=== PATIENT | female | born 1970 | race Caucasian/White ===

== ENCOUNTER → 2023-10-13 | Outpatient (REF) | payer MEDICAID | LOC: M SFHCPLAZ 09:37 | PROVIDERS: ATTEND Internal Medicine Infectious Disease | DX: B20 Human immunodeficiency virus [HIV] disease (principal); E05.90 Thyrotoxicosis, unspecified without thyrotoxic crisis or storm; E78.00 Pure hypercholesterolemia, unspecified ==

== ENCOUNTER 2024-03-22 23:14 | Emergency (ER) | payer OTHER, MEDICAID ==
[~2024-03-22] VITALS: Ht 180.3 cm; Wt 105.0 kg
[~2024-03-22 23:14] MED LIST: ACET-897 PO; BIKT1TAB PO; CETI10CH PO; DOCU100C16 PO; HYDR25OIN TOP; IBUP-1022 PO; IBUP200C28 PO; LAMI25TA PO; LATU40TA2 PO; LURA60TA PO; METH-1386 PO; MIRT-10 PO; MIRT-88 PO; MIRT1TAB16 PO; ONDA-282 PO; PROP20TA PO; PROP20TA72 PO; PROP40TA62 PO; QUET50TA4 PO; TRAZ-252 PO; TRAZ-257 PO
[2024-03-23 06:12] VITALS: TEMP 98
[2024-03-23] MEDS ORDERED: TRAM50TA2 PO (06:31)
[2024-03-23] MEDS: traMADol 50 MG TAB PO ONE (06:54)
[2024-03-23 06:58] VITALS: BP 141/64; O2SAT 98
== END 2024-03-23 07:14 | disposition home or self-care (01) ==
LOC: EDBD 23:14 → M ED 23:14
DX: S93.401A Sprain of unspecified ligament of right ankle, initial encounter (principal); S80.11XA Contusion of right lower leg, initial encounter; Y92.019 Unspecified place in single-family (private) house as the place of occurrence of the external cause; Y93.9 Activity, unspecified; Y99.9 Unspecified external cause status; W01.198A Fall on same level from slipping, tripping and stumbling with subsequent striking against other object, initial encounter; Z91.010 Allergy to peanuts; Z79.1 Long term (current) use of non-steroidal anti-inflammatories (NSAID); Z79.899 Other long term (current) drug therapy

== ENCOUNTER 2024-07-12 00:04 | Emergency (ER) | payer OTHER ==
[~2024-07-12] VITALS: Ht 170.2 cm; Wt 96.3 kg
[~2024-07-12 00:04] MED LIST changes: +TRAM50TA2 PO
[2024-07-12 00:28] VITALS: BP 127/71; TEMP 98.2; O2SAT 94
== END 2024-07-12 00:45 | disposition left against medical advice (07) ==
LOC: M ED 00:04
DX: Z53.21 Procedure and treatment not carried out due to patient leaving prior to being seen by health care provider (principal)

== ENCOUNTER 2024-07-12 09:51 | Emergency (ER) | payer OTHER ==
[2024-07-12 10:23] VITALS: TEMP 98
[2024-07-12] MEDS: IBUPROFEN 600MG TAB PO ONE (13:42)
[2024-07-12 14:01] VITALS: BP 158/65
[2024-07-12 14:02] VITALS: O2SAT 97
== END 2024-07-12 14:18 | disposition left against medical advice (07) ==
LOC: M ED 09:51
DX: S69.92XA Unspecified injury of left wrist, hand and finger(s), initial encounter (principal); Y92.019 Unspecified place in single-family (private) house as the place of occurrence of the external cause; Y93.9 Activity, unspecified; Y99.9 Unspecified external cause status; F31.30 Bipolar disorder, current episode depressed, mild or moderate severity, unspecified; Z91.018 Allergy to other foods; Z91.010 Allergy to peanuts; Z79.1 Long term (current) use of non-steroidal anti-inflammatories (NSAID); Z79.899 Other long term (current) drug therapy; Z53.9 Procedure and treatment not carried out, unspecified reason

== ENCOUNTER 2024-10-24 22:00 | Inpatient (IN) | payer OTHER ==
[~2024-10-24] VITALS: Ht 180.3 cm; Wt 87.5 kg
[~2024-10-24 22:00] MED LIST changes: -ALBU8.5H INH; -FLUTISP NARES; -LORA-930 PO; -SYMB16INH INH
[2024-10-24] MEDS: NS (Normal Saline) 0.9% 1,000 ML IV ONE (22:37)
[2024-10-24] MEDS: KETOROLAC 30 MG/ML 1 ML VIAL IV ONE (22:37)
[2024-10-24 22:50] LABS: BASO # 0.0 10^3/uL (0.0-0.2); BASO % 0.1 % (0.0-1.0); EOS # 0.0 10^3/uL (0.0-0.5); EOS % 0.4 % (0.0-3.0); LYMPH # 1.3 10^3/uL (1.5-5.0); LYMPH % 18.5 % (24.0-44.0); MONO # 0.7 10^3/uL (0.0-0.8); MONO % 9.6 % (2.0-8.0); NEUTROPHILS # 5.1 10^3/uL (1.5-8.5); NEUTROPHILS % 71.3 % (36.0-66.0); PLATELET COUNT, AUTOMATED 241 10^3/uL (150-450)
[2024-10-25] VITALS (10 sets, daily range): BP systolic 105–158; BP diastolic 53–68; TEMP 99–102.6; O2SAT 94–98
[2024-10-25 00:49] LABS: ALT/SGPT 30 U/L (7.0-40); AST/SGOT 56 U/L (<34); CALCIUM LEVEL 9.0 MG/DL (8.5-10.1); CARBON DIOXIDE LEVEL 23 MMOL/L (20-31); CHLORIDE LEVEL 104 MMOL/L (98-107); CREATININE FOR GFR 0.52 MG/DL (0.55-1.30); GLOMERULAR FILTRATION RATE > 90.0 (>51); POTASSIUM SERUM 4.8 MMOL/L (3.5-5.1); SODIUM LEVEL 140 MMOL/L (136-145)
[2024-10-25] MEDS ORDERED: ISOVUE-370 76% 100 ML VIAL As Ordered ONE (01:08)
[2024-10-25 02:07] LABS: KETONE, URINE AUTO RFX NEGATIVE (NEGATIVE); LEUKOCYTE ESTERASE UR AUTO RFX 3+ (NEGATIVE); NITRITE, URINE AUTO RFX POSITIVE (NEGATIVE); RBC, URINE AUTO RFX 13 /HPF (0-3); SQUAM EPITHELIAL CELL UR AURFX 5 /HPF (0-6); WBC, URINE AUTO RFX TNTC /HPF (0-3)
[2024-10-25] MEDS: cefTRIAXone SOD 2 GM in DEXTROSE 5% (D5W) ADV/MINI-BAG 50 ML IV ONE (03:01)
[2024-10-25] MEDS: ONDANSETRON 4MG 2ML VIAL IV ONE (03:01)
[2024-10-25] MEDS: LR 1,000 ML IV SCH (03:59)
[2024-10-25] MEDS: ACETAMINOPHEN 500 MG TAB PO PRN (05:09)
[2024-10-25] MEDS: ONDANSETRON 4MG 2ML VIAL IV PRN (05:09)
[2024-10-25 07:40] LABS: BASO # 0.0 10^3/uL (0.0-0.2); BASO % 0.1 % (0.0-1.0); EOS # 0.0 10^3/uL (0.0-0.5); EOS % 0.1 % (0.0-3.0); LYMPH # 0.8 10^3/uL (1.5-5.0); LYMPH % 8.4 % (24.0-44.0); MONO # 0.9 10^3/uL (0.0-0.8); MONO % 10.3 % (2.0-8.0); NEUTROPHILS # 7.2 10^3/uL (1.5-8.5); NEUTROPHILS % 80.5 % (36.0-66.0); PLATELET COUNT, AUTOMATED 235 10^3/uL (150-450)
[2024-10-25] MEDS: IPRATROPIUM 0.5 MG/ALBUTEROL 2.5 MG INH SOL UD 3 ML NEB SCH (08:05)
[2024-10-25 08:12] LABS: ALT/SGPT 21 U/L (7.0-40); AST/SGOT 23 U/L (<34); CALCIUM LEVEL 8.8 MG/DL (8.5-10.1); CARBON DIOXIDE LEVEL 24 MMOL/L (20-31); CHLORIDE LEVEL 105 MMOL/L (98-107); CREATININE FOR GFR 0.69 MG/DL (0.55-1.30); FREE T4 6.54 NG/DL (0.89-1.76); GLOMERULAR FILTRATION RATE > 90.0 (>51); POTASSIUM SERUM 3.8 MMOL/L (3.5-5.1); SODIUM LEVEL 141 MMOL/L (136-145)
[2024-10-25] MEDS: KETOROLAC 30 MG/ML 1 ML VIAL IV PRN (08:15)
[2024-10-25] MEDS ORDERED: PROPRANOLOL 20 MG TAB PO SCH ×2 (09:00→09:25)
[2024-10-25] MEDS ORDERED: LORA-930 PO (09:06)
[2024-10-25] MEDS ORDERED: FLUTISP NARES (09:06)
[2024-10-25] MEDS ORDERED: ALBU8.5H INH (09:06)
[2024-10-25] MEDS ORDERED: SYMB16INH INH (09:06)
[2024-10-25] MEDS ORDERED: HOME MED LIST COMPLETE! XX SCH (09:10)
[2024-10-25] MEDS: FAMOTIDINE 20 MG TAB PO SCH (09:48)
[2024-10-25] MEDS: SYMBICORT 160/4.5MCG INHALER 6GM INH SCH (11:30)
[2024-10-25] MEDS: lamoTRIgine 25 MG TAB PO SCH (12:23)
[2024-10-25] MEDS: NS 0.45% 1,000 ML IV SCH (14:38)
[2024-10-25 14:48] LABS: CALCIUM LEVEL 8.6 MG/DL (8.5-10.1); CARBON DIOXIDE LEVEL 28 MMOL/L (20-31); CHLORIDE LEVEL 106 MMOL/L (98-107); CREATININE FOR GFR 0.71 MG/DL (0.55-1.30); GLOMERULAR FILTRATION RATE > 90.0 (>51); POTASSIUM SERUM 4.1 MMOL/L (3.5-5.1); SODIUM LEVEL 143 MMOL/L (136-145)
[2024-10-25 14:58] LABS: T UPTAKE 65.0 % (22.5-37.0)
[2024-10-25 15:13] LABS: THYROXINE (T4) 18.8 UG/DL (4.5-10.9)
[2024-10-25] MEDS: cefTRIAXone SOD 2 GM in DEXTROSE 5% (D5W) ADV/MINI-BAG 50 ML IV SCH (20:08)
[2024-10-25] MEDS: HEPARIN SOD 5000 UNITS/ML 1 ML VIAL/SYRINGE SC SCH (20:08)
[2024-10-25] MEDS: PROPRANOLOL 20 MG TAB PO ONE (22:09)
[2024-10-26] VITALS (9 sets, daily range): BP systolic 101–126; BP diastolic 52–60; TEMP 97.2–100.6; O2SAT 92–99
[2024-10-26] MEDS: PROPRANOLOL 20 MG TAB PO SCH
[2024-10-26] MEDS: LEVALBUTEROL 1.25 MG 0.5ML CONCENTRATE NEB INH SCH (02:00)
[2024-10-26 05:53] LABS: PLATELET COUNT, AUTOMATED 197 10^3/uL (150-450)
[2024-10-26 06:20] LABS: ALT/SGPT 22 U/L (7.0-40); AST/SGOT 25 U/L (<34); CALCIUM LEVEL 8.6 MG/DL (8.5-10.1); CARBON DIOXIDE LEVEL 25 MMOL/L (20-31); CHLORIDE LEVEL 103 MMOL/L (98-107); CREATININE FOR GFR 0.58 MG/DL (0.55-1.30); GLOMERULAR FILTRATION RATE > 90.0 (>51); POTASSIUM SERUM 4.4 MMOL/L (3.5-5.1); SODIUM LEVEL 138 MMOL/L (136-145)
[2024-10-26] MEDS ORDERED: POTASSIUM IODIDE 30 ML BTL PO SCH (09:00)
[2024-10-26] MEDS: HYDROCORTISONE 100 MG/2 ML VIAL IV SCH (09:25)
[2024-10-26] MEDS: BIKTARVY PO SCH (09:25)
[2024-10-26] MEDS: POTASSIUM IODIDE 30 ML BTL PO SCH (13:42)
[2024-10-27 03:43] VITALS: BP 101/49; TEMP 96.9; O2SAT 96
[2024-10-27 05:59] LABS: PLATELET COUNT, AUTOMATED 202 10^3/uL (150-450)
[2024-10-27 06:27] LABS: FREE T4 3.34 NG/DL (0.89-1.76)
[2024-10-27 06:36] LABS: ALT/SGPT 23 U/L (7.0-40); AST/SGOT 22 U/L (<34); CALCIUM LEVEL 8.7 MG/DL (8.5-10.1); CARBON DIOXIDE LEVEL 25 MMOL/L (20-31); CHLORIDE LEVEL 109 MMOL/L (98-107); CREATININE FOR GFR 0.46 MG/DL (0.55-1.30); GLOMERULAR FILTRATION RATE > 90.0 (>51); POTASSIUM SERUM 4.2 MMOL/L (3.5-5.1); SODIUM LEVEL 143 MMOL/L (136-145)
[2024-10-27 07:39] VITALS: BP 130/62; TEMP 97; O2SAT 96
[2024-10-27 12:21] VITALS: BP 133/60; TEMP 98; O2SAT 96
[2024-10-27 16:37] VITALS: BP 140/64; TEMP 97.8; O2SAT 97
[2024-10-27] MEDS ORDERED: SENNOSIDES/DOCUSATE SODIUM 8.6 MG/50MG TAB PO PRN (17:00)
[2024-10-27] MEDS ORDERED: MOM 30 ML SUSPENSION UDC PO PRN (17:00)
[2024-10-27] MEDS: LACTULOSE 20 GM/30 ML SYRUP UDC PO ONE (17:49)
[2024-10-27] MEDS: SENNOSIDES/DOCUSATE SODIUM 8.6 MG/50MG TAB PO ONE (17:50)
[2024-10-27 19:41] LABS: % CD4 46 % (30-61); %CD8 23 % (12-42); ABSOLUTE CD4 CELLS 874 cells/uL (490-1740); ABSOLUTE CD8 CELLS 433 cells/uL (180-1170); ABSOLUTE LYMPHOCYTES 1904 cells/uL (850-3900); CD4 CD8 RATIO 2.02 (0.86-5.00)
[2024-10-27 20:22] VITALS: BP 141/64; TEMP 98.3; O2SAT 99
[2024-10-27] MEDS: DOCUSATE SODIUM 100 MG CAPSULE PO SCH (20:34)
[2024-10-27 23:09] VITALS: BP 154/70; TEMP 96.4; O2SAT 94
[2024-10-27] MEDS: RAMELTEON 8 MG TAB PO SCH (23:11)
[2024-10-28 03:55] VITALS: BP 128/70; TEMP 97.7; O2SAT 96
[2024-10-28 06:09] LABS: PLATELET COUNT, AUTOMATED 222 10^3/uL (150-450)
[2024-10-28 08:02] LABS: ALT/SGPT 19 U/L (7.0-40); AST/SGOT 16 U/L (<34); CALCIUM LEVEL 8.7 MG/DL (8.5-10.1); CARBON DIOXIDE LEVEL 26 MMOL/L (20-31); CHLORIDE LEVEL 109 MMOL/L (98-107); CREATININE FOR GFR 0.47 MG/DL (0.55-1.30); FREE T4 2.84 NG/DL (0.89-1.76); GLOMERULAR FILTRATION RATE > 90.0 (>51); POTASSIUM SERUM 3.8 MMOL/L (3.5-5.1); SODIUM LEVEL 145 MMOL/L (136-145)
[2024-10-28 08:17] VITALS: BP 135/61; TEMP 97; O2SAT 96
[2024-10-28 12:05] VITALS: BP 147/67; TEMP 97.2; O2SAT 96
[2024-10-28 16:42] VITALS: BP 117/58; TEMP 97.1; O2SAT 96
[2024-10-28 19:31] VITALS: BP 119/57; TEMP 97.6; O2SAT 97
[2024-10-28 23:53] VITALS: BP 157/70; TEMP 97; O2SAT 96
[2024-10-29 03:42] VITALS: BP 153/69; TEMP 97.8; O2SAT 92
[2024-10-29 06:06] LABS: PLATELET COUNT, AUTOMATED 270 10^3/uL (150-450)
[2024-10-29 06:29] LABS: ALT/SGPT 23 U/L (7.0-40); AST/SGOT 17 U/L (<34); CALCIUM LEVEL 8.5 MG/DL (8.5-10.1); CARBON DIOXIDE LEVEL 28 MMOL/L (20-31); CHLORIDE LEVEL 105 MMOL/L (98-107); CREATININE FOR GFR 0.44 MG/DL (0.55-1.30); GLOMERULAR FILTRATION RATE > 90.0 (>51); POTASSIUM SERUM 3.8 MMOL/L (3.5-5.1); SODIUM LEVEL 141 MMOL/L (136-145)
[2024-10-29 06:32] LABS: FREE T4 2.41 NG/DL (0.89-1.76)
[2024-10-29 07:41] VITALS: TEMP 97.4; O2SAT 94
[2024-10-29 07:57] VITALS: BP 160/80
[2024-10-29 11:40] VITALS: BP 149/69; TEMP 98.4; O2SAT 96
[2024-10-29] MEDS: POTASSIUM IODIDE 30 ML BTL PO SCH (14:14)
[2024-10-29 15:48] VITALS: BP 127/62; TEMP 97.8; O2SAT 94
[2024-10-29 20:02] VITALS: BP 123/58; TEMP 97.2; O2SAT 96
[2024-10-29] MEDS: CHOLESTYRAMINE 4 GM PWD PKT PO SCH (22:20)
[2024-10-29 22:23] LABS: THYROGLOBULIN ANTIBODY 26.0 U/ML (<60.0)
[2024-10-29 22:24] LABS: THYROID PEROXIDASE ANTIBODY 105 U/ML (<60.0)
[2024-10-30] VITALS (10 sets, daily range): BP systolic 132–178; BP diastolic 60–84; TEMP 96.9–97.5; O2SAT 93–98
[2024-10-30] MEDS: HYDROCORTISONE 100 MG/2 ML VIAL IV SCH ×2 (00:01→23:22)
[2024-10-30 06:02] LABS: PLATELET COUNT, AUTOMATED 257 10^3/uL (150-450)
[2024-10-30 06:32] LABS: ALT/SGPT 26 U/L (7.0-40); AST/SGOT 20 U/L (<34); CALCIUM LEVEL 8.5 MG/DL (8.5-10.1); CARBON DIOXIDE LEVEL 28 MMOL/L (20-31); CHLORIDE LEVEL 104 MMOL/L (98-107); CREATININE FOR GFR 0.50 MG/DL (0.55-1.30); GLOMERULAR FILTRATION RATE > 90.0 (>51); POTASSIUM SERUM 4.0 MMOL/L (3.5-5.1); SODIUM LEVEL 141 MMOL/L (136-145)
[2024-10-30 06:34] LABS: FREE T4 2.09 NG/DL (0.89-1.76)
[2024-10-30] MEDS: CHOLESTYRAMINE 4 GM PWD PKT PO SCH (20:44)
[2024-10-31] VITALS (8 sets, daily range): BP systolic 123–162; BP diastolic 60–71; TEMP 97.2–98; O2SAT 96–99
[2024-10-31 05:10] LABS: PLATELET COUNT, AUTOMATED 281 10^3/uL (150-450)
[2024-10-31 05:41] LABS: ALT/SGPT 22 U/L (7.0-40); AST/SGOT 18 U/L (<34); CALCIUM LEVEL 8.2 MG/DL (8.5-10.1); CARBON DIOXIDE LEVEL 28 MMOL/L (20-31); CHLORIDE LEVEL 104 MMOL/L (98-107); CREATININE FOR GFR 0.52 MG/DL (0.55-1.30); GLOMERULAR FILTRATION RATE > 90.0 (>51); POTASSIUM SERUM 4.0 MMOL/L (3.5-5.1); SODIUM LEVEL 140 MMOL/L (136-145)
[2024-10-31 05:43] LABS: FREE T4 1.85 NG/DL (0.89-1.76)
[2024-10-31] MEDS: POTASSIUM IODIDE 30 ML BTL PO SCH (18:46)
[2024-11-01 03:48] VITALS: BP 132/62; TEMP 97.5; O2SAT 97
[2024-11-01 04:00] VITALS: BP 132/62; TEMP 97.5; O2SAT 97
[2024-11-01 05:27] LABS: PLATELET COUNT, AUTOMATED 297 10^3/uL (150-450)
[2024-11-01 06:01] LABS: ALT/SGPT 20 U/L (7.0-40); AST/SGOT 17 U/L (<34); CALCIUM LEVEL 7.7 MG/DL (8.5-10.1); CARBON DIOXIDE LEVEL 26 MMOL/L (20-31); CHLORIDE LEVEL 106 MMOL/L (98-107); CREATININE FOR GFR 0.51 MG/DL (0.55-1.30); FREE T4 1.55 NG/DL (0.89-1.76); GLOMERULAR FILTRATION RATE > 90.0 (>51); POTASSIUM SERUM 3.5 MMOL/L (3.5-5.1); SODIUM LEVEL 142 MMOL/L (136-145)
[2024-11-01 07:55] VITALS: BP 141/65; TEMP 97.8; O2SAT 98
[2024-11-01] MEDS ORDERED: METH-1387 PO (08:37)
[2024-11-01] MEDS ORDERED: ATEN50TA2 PO (08:38)
[2024-11-01 12:32] LABS: THRYOGLOBULIN ANTIBODIES (ATA) < 1 IU/mL (< or = 1); THYROGLOBULIN QUANTITATIVE 220.5 ng/mL (2.8-40.9)
[2024-11-03 21:52] LABS: TSH RECEPTOR ASSAY 34.92 IU/L (<=2.00)
== END 2024-11-01 12:22 | disposition home or self-care (01) | DRG 720 ==
LOC: M ED 22:00 → M ED INP 22:01 → M MSPAV 10-25 05:48 → M PCU 10-25 10:05 → OBSVTOIN 10-25 11:44
PROVIDERS: ADMIT Student in an Organized Health Care Education/Training Program; ATTEND Student in an Organized Health Care Education/Training Program
PROC: B246ZZZ Ultrasonography of Right and Left Heart (ICD-10-PCS; principal; 2024-10-27)
DX: A41.9 Sepsis, unspecified organism (principal); D84.821 Immunodeficiency due to drugs; Q61.3 Polycystic kidney, unspecified; K76.89 Other specified diseases of liver; E05.90 Thyrotoxicosis, unspecified without thyrotoxic crisis or storm; N39.0 Urinary tract infection, site not specified; R19.7 Diarrhea, unspecified; R01.1 Cardiac murmur, unspecified; J45.909 Unspecified asthma, uncomplicated; G47.00 Insomnia, unspecified; F39 Unspecified mood [affective] disorder; R11.0 Nausea; R74.01 Elevation of levels of liver transaminase levels; D64.9 Anemia, unspecified; B96.20 Unspecified Escherichia coli [E. coli] as the cause of diseases classified elsewhere; E06.3 Autoimmune thyroiditis; F41.9 Anxiety disorder, unspecified; I10 Essential (primary) hypertension; Z21 Asymptomatic human immunodeficiency virus [HIV] infection status; Z79.899 Other long term (current) drug therapy; Z91.010 Allergy to peanuts; Z91.018 Allergy to other foods; Z91.038 Other insect allergy status

== ENCOUNTER → 2024-10-24 | Outpatient (CLI) | payer OTHER ==
[~2024-10-24] MED LIST changes: +ALBU8.5H INH; +AMOX875T2 PO; +FLUTISP NARES; +LORA-930 PO; +SYMB16INH INH
== END ==
LOC: M WHC 09:30
PROVIDERS: ATTEND Internal Medicine Infectious Disease
DX: E05.20 Thyrotoxicosis with toxic multinodular goiter without thyrotoxic crisis or storm (principal)

== ENCOUNTER → 2024-11-15 | Outpatient (REF) | payer OTHER, MEDICAID ==
[~2024-11-15] MED LIST changes: +ALBU8.5H INH; +ATEN50TA2 PO; +FLUTISP NARES; -IBUP-1022 PO; +IBUP600T42 PO; +LORA-930 PO; +METH-1387 PO; +PRED20TA PO; +SYMB16INH INH
[2024-11-15 14:20] LABS: BASO # 0.0 10^3/uL (0.0-0.2); BASO % 0.6 % (0.0-1.0); EOS # 0.1 10^3/uL (0.0-0.5); EOS % 2.8 % (0.0-3.0); LYMPH # 1.7 10^3/uL (1.5-5.0); LYMPH % 51.6 % (24.0-44.0); MONO # 0.6 10^3/uL (0.0-0.8); MONO % 18.8 % (2.0-8.0); NEUTROPHILS % 25.9 % (36.0-66.0); PLATELET COUNT, AUTOMATED 390 10^3/uL (150-450)
[2024-11-15 14:36] LABS: NEUTROPHILS # 0.8 10^3/uL (1.5-8.5)
[2024-11-15 15:51] LABS: ALT/SGPT 19 U/L (7.0-40); AST/SGOT 23 U/L (<34); CALCIUM LEVEL 9.9 MG/DL (8.5-10.1); CARBON DIOXIDE LEVEL 25 MMOL/L (20-31); CHLORIDE LEVEL 103 MMOL/L (98-107); CREATININE FOR GFR 0.60 MG/DL (0.55-1.30); FREE T4 > 8.00 NG/DL (0.89-1.76); GLOMERULAR FILTRATION RATE > 90.0 (>51); POTASSIUM SERUM 4.5 MMOL/L (3.5-5.1); SODIUM LEVEL 137 MMOL/L (136-145); TOTAL T3 > 800.0 NG/DL (60.0-181.0)
== END ==
LOC: M LAB REF 14:01
PROVIDERS: ATTEND Student in an Organized Health Care Education/Training Program
DX: E05.90 Thyrotoxicosis, unspecified without thyrotoxic crisis or storm (principal); R50.9 Fever, unspecified

== ENCOUNTER 2024-11-17 11:12 | Inpatient (IN) | payer MEDICAID, OTHER ==
[~2024-11-17] VITALS: Ht 180.3 cm; Wt 89.0 kg
[~2024-11-17 11:12] MED LIST changes: -PRED20TA PO
[2024-11-17 13:12] LABS: BASO # 0.0 10^3/uL (0.0-0.2); BASO % 0.4 % (0.0-1.0); EOS # 0.1 10^3/uL (0.0-0.5); EOS % 2.3 % (0.0-3.0); LYMPH # 1.6 10^3/uL (1.5-5.0); LYMPH % 64.1 % (24.0-44.0); MONO # 0.4 10^3/uL (0.0-0.8); MONO % 15.6 % (2.0-8.0); NEUTROPHILS % 17.2 % (36.0-66.0); PLATELET COUNT, AUTOMATED 259 10^3/uL (150-450)
[2024-11-17 13:14] LABS: NEUTROPHILS # 0.4 10^3/uL (1.5-8.5)
[2024-11-17 13:45] LABS: FREE T4 > 8.00 NG/DL (0.89-1.76)
[2024-11-17 13:58] LABS: ALT/SGPT 21 U/L (7.0-40); AST/SGOT 27 U/L (<34); CALCIUM LEVEL 9.5 MG/DL (8.5-10.1); CARBON DIOXIDE LEVEL 30 MMOL/L (20-31); CHLORIDE LEVEL 104 MMOL/L (98-107); CREATININE FOR GFR 0.54 MG/DL (0.55-1.30); GLOMERULAR FILTRATION RATE > 90.0 (>51); POTASSIUM SERUM 4.0 MMOL/L (3.5-5.1); SODIUM LEVEL 141 MMOL/L (136-145)
[2024-11-17 14:15] LABS: KETONE, URINE AUTO RFX NEGATIVE (NEGATIVE); NITRITE, URINE AUTO RFX NEGATIVE (NEGATIVE); RBC, URINE AUTO RFX 4 /HPF (0-3); SQUAM EPITHELIAL CELL UR AURFX 3 /HPF (0-6); WBC, URINE AUTO RFX 4 /HPF (0-3)
[2024-11-17 14:18] LABS: LEUKOCYTE ESTERASE UR AUTO RFX TRACE (NEGATIVE)
[2024-11-17] MEDS: NS (Normal Saline) 0.9% 1,000 ML IV ONE (14:34)
[2024-11-17] MEDS: ONDANSETRON 4MG 2ML VIAL IV ONE (14:53)
[2024-11-17 16:16] LABS: ERYTHROCYTE SEDIMENTATION RATE 123 mm/hr (0-30)
[2024-11-17] MEDS ORDERED: METH-1387 PO (16:17)
[2024-11-17] MEDS ORDERED: ATEN50TA2 PO (16:17)
[2024-11-17] MEDS ORDERED: HOME MED LIST COMPLETE! XX SCH (16:20)
[2024-11-17 16:27] LABS: C REACTIVE PROTEIN QUANTITATIV 1.31 MG/DL (<1.0)
[2024-11-17 16:30] VITALS: TEMP 98.5; O2SAT 97
[2024-11-17 17:46] VITALS: BP 147/70
[2024-11-17] MEDS ORDERED: DOCUSATE SODIUM 100 MG CAPSULE PO PRN (18:05)
[2024-11-17] MEDS ORDERED: ALBUTEROL 90 MCG/ACT 8 GM HFA INHALER INH PRN (18:05)
[2024-11-17] MEDS: HYDROCORTISONE 100 MG/2 ML VIAL IV SCH (18:07)
[2024-11-17] MEDS: PROPRANOLOL 20 MG TAB PO SCH (18:13)
[2024-11-17 19:35] VITALS: BP 151/64; TEMP 98; O2SAT 95
[2024-11-17] MEDS: POTASSIUM IODIDE 30 ML BTL PO SCH (19:53)
[2024-11-17] MEDS: SYMBICORT 160/4.5MCG INHALER 6GM INH SCH (19:59)
[2024-11-17] MEDS: NYSTATIN 100,000 UNITS/GM TOPICAL PWD 15 GM TOP SCH (21:20)
[2024-11-17] MEDS: ENOXAPARIN 40 MG/0.4 ML SYRINGE (J1650 PER 10MG) SC SCH (21:20)
[2024-11-18 00:05] VITALS: BP 127/60; TEMP 97.2; O2SAT 94
[2024-11-18 04:36] VITALS: BP 121/58; TEMP 98.1; O2SAT 97
[2024-11-18 06:10] LABS: PLATELET COUNT, AUTOMATED 224 10^3/uL (150-450)
[2024-11-18 06:36] LABS: ALT/SGPT 17 U/L (7.0-40); AST/SGOT 19 U/L (<34); CALCIUM LEVEL 9.2 MG/DL (8.5-10.1); CARBON DIOXIDE LEVEL 28 MMOL/L (20-31); CHLORIDE LEVEL 107 MMOL/L (98-107); CREATININE FOR GFR 0.52 MG/DL (0.55-1.30); GLOMERULAR FILTRATION RATE > 90.0 (>51); POTASSIUM SERUM 4.3 MMOL/L (3.5-5.1); SODIUM LEVEL 144 MMOL/L (136-145)
[2024-11-18 07:29] VITALS: BP 140/63; TEMP 98.4; O2SAT 96
[2024-11-18 08:36] LABS: FREE T4 6.60 NG/DL (0.89-1.76)
[2024-11-18] MEDS: LORATADINE 10 MG TAB PO SCH (09:24)
[2024-11-18] MEDS: BIKTARVY PO SCH (09:24)
[2024-11-18] MEDS: FLUTICASONE PROPIONATE 0.05% NASAL SPRAY 16 GM NARES SCH (09:25)
[2024-11-18 12:00] VITALS: BP 141/65; TEMP 97.6; O2SAT 98
[2024-11-18 16:25] VITALS: BP 136/64; TEMP 97; O2SAT 97
[2024-11-18] MEDS: CHOLESTYRAMINE 4 GM PWD PKT PO SCH (19:25)
[2024-11-18 19:41] VITALS: BP 137/71; TEMP 97.4; O2SAT 97
[2024-11-18] MEDS: ACETAMINOPHEN 500 MG TAB PO PRN (23:55)
[2024-11-19] VITALS (7 sets, daily range): BP systolic 112–154; BP diastolic 56–72; TEMP 97–98.3; O2SAT 92–98
[2024-11-19 05:56] LABS: BASO # 0.0 10^3/uL (0.0-0.2); BASO % 0.0 % (0.0-1.0); EOS # 0.0 10^3/uL (0.0-0.5); EOS % 0.3 % (0.0-3.0); LYMPH # 1.8 10^3/uL (1.5-5.0); LYMPH % 52.7 % (24.0-44.0); MONO # 0.5 10^3/uL (0.0-0.8); MONO % 13.5 % (2.0-8.0); NEUTROPHILS # 1.2 10^3/uL (1.5-8.5); NEUTROPHILS % 33.2 % (36.0-66.0); PLATELET COUNT, AUTOMATED 204 10^3/uL (150-450)
[2024-11-19 06:20] LABS: ALT/SGPT 16 U/L (7.0-40); AST/SGOT 15 U/L (<34); CALCIUM LEVEL 9.4 MG/DL (8.5-10.1); CARBON DIOXIDE LEVEL 29 MMOL/L (20-31); CHLORIDE LEVEL 107 MMOL/L (98-107); CREATININE FOR GFR 0.44 MG/DL (0.55-1.30); GLOMERULAR FILTRATION RATE > 90.0 (>51); POTASSIUM SERUM 3.7 MMOL/L (3.5-5.1); SODIUM LEVEL 143 MMOL/L (136-145)
[2024-11-19 06:22] LABS: FREE T4 5.46 NG/DL (0.89-1.76)
[2024-11-19] MEDS: HYDROCORTISONE 100 MG/2 ML VIAL IV SCH (17:20)
[2024-11-20 04:24] VITALS: BP 127/57; TEMP 98.3; O2SAT 96
[2024-11-20 05:46] LABS: BASO # 0.0 10^3/uL (0.0-0.2); BASO % 0.0 % (0.0-1.0); EOS # 0.0 10^3/uL (0.0-0.5); EOS % 0.2 % (0.0-3.0); LYMPH # 2.7 10^3/uL (1.5-5.0); LYMPH % 54.1 % (24.0-44.0); MONO # 0.6 10^3/uL (0.0-0.8); MONO % 11.7 % (2.0-8.0); NEUTROPHILS # 1.7 10^3/uL (1.5-8.5); NEUTROPHILS % 33.8 % (36.0-66.0); PLATELET COUNT, AUTOMATED 229 10^3/uL (150-450)
[2024-11-20 06:22] LABS: ALT/SGPT 16 U/L (7.0-40); AST/SGOT 15 U/L (<34); CALCIUM LEVEL 9.2 MG/DL (8.5-10.1); CARBON DIOXIDE LEVEL 26 MMOL/L (20-31); CHLORIDE LEVEL 107 MMOL/L (98-107); CREATININE FOR GFR 0.44 MG/DL (0.55-1.30); GLOMERULAR FILTRATION RATE > 90.0 (>51); POTASSIUM SERUM 3.5 MMOL/L (3.5-5.1); SODIUM LEVEL 145 MMOL/L (136-145)
[2024-11-20 06:45] VITALS: BP 142/67; TEMP 97; O2SAT 97
[2024-11-20 07:35] LABS: FREE T4 4.63 NG/DL (0.89-1.76); TOTAL T3 223.3 NG/DL (60.0-181.0)
[2024-11-20 07:40] VITALS: BP 126/58; TEMP 97.8; O2SAT 97
[2024-11-20 12:15] VITALS: BP 133/63; TEMP 97.9; O2SAT 97
[2024-11-20 15:35] VITALS: BP 116/57; TEMP 98; O2SAT 97
[2024-11-20 19:29] VITALS: BP 133/63; TEMP 97; O2SAT 97
[2024-11-20] MEDS: HYDROCORTISONE 100 MG/2 ML VIAL IV SCH (20:43)
[2024-11-21 03:45] VITALS: BP 121/57; TEMP 97.7; O2SAT 95
[2024-11-21 06:01] LABS: BASO # 0.0 10^3/uL (0.0-0.2); BASO % 0.2 % (0.0-1.0); EOS # 0.1 10^3/uL (0.0-0.5); EOS % 0.9 % (0.0-3.0); LYMPH # 3.2 10^3/uL (1.5-5.0); LYMPH % 56.9 % (24.0-44.0); MONO # 0.5 10^3/uL (0.0-0.8); MONO % 9.3 % (2.0-8.0); NEUTROPHILS # 1.8 10^3/uL (1.5-8.5); NEUTROPHILS % 32.5 % (36.0-66.0); PLATELET COUNT, AUTOMATED 223 10^3/uL (150-450)
[2024-11-21 06:31] LABS: FREE T4 3.89 NG/DL (0.89-1.76)
[2024-11-21 06:32] LABS: ALT/SGPT 17 U/L (7.0-40); AST/SGOT 12 U/L (<34); CALCIUM LEVEL 8.9 MG/DL (8.5-10.1); CARBON DIOXIDE LEVEL 27 MMOL/L (20-31); CHLORIDE LEVEL 107 MMOL/L (98-107); CREATININE FOR GFR 0.51 MG/DL (0.55-1.30); GLOMERULAR FILTRATION RATE > 90.0 (>51); POTASSIUM SERUM 3.5 MMOL/L (3.5-5.1); SODIUM LEVEL 144 MMOL/L (136-145)
[2024-11-21 08:00] VITALS: TEMP 96.2; O2SAT 99
[2024-11-21] MEDS: HYDROCORTISONE 10 MG TAB PO SCH (10:26)
[2024-11-21 12:00] VITALS: BP 141/64; TEMP 98.5; O2SAT 96
[2024-11-21] MEDS: ONDANSETRON 4MG 2ML VIAL IV PRN (15:56)
[2024-11-21 16:00] VITALS: BP 125/60; TEMP 98; O2SAT 99
[2024-11-21] MEDS ORDERED: CHOLESTYRAMINE 4 GM PWD PKT PO SCH (16:00)
[2024-11-21 20:13] VITALS: BP 113/51; TEMP 97; O2SAT 98
[2024-11-22 00:14] VITALS: BP 102/51; TEMP 96.9; O2SAT 95
[2024-11-22 04:29] VITALS: BP 134/62; TEMP 96.6; O2SAT 95
[2024-11-22 06:25] LABS: BASO # 0.0 10^3/uL (0.0-0.2); BASO % 0.1 % (0.0-1.0); EOS # 0.2 10^3/uL (0.0-0.5); EOS % 2.4 % (0.0-3.0); LYMPH # 3.1 10^3/uL (1.5-5.0); LYMPH % 46.3 % (24.0-44.0); MONO # 0.6 10^3/uL (0.0-0.8); MONO % 9.1 % (2.0-8.0); NEUTROPHILS # 2.8 10^3/uL (1.5-8.5); NEUTROPHILS % 41.8 % (36.0-66.0); PLATELET COUNT, AUTOMATED 216 10^3/uL (150-450)
[2024-11-22 06:50] LABS: ALT/SGPT 14 U/L (7.0-40); AST/SGOT 12 U/L (<34); CALCIUM LEVEL 8.9 MG/DL (8.5-10.1); CARBON DIOXIDE LEVEL 27 MMOL/L (20-31); CHLORIDE LEVEL 108 MMOL/L (98-107); CREATININE FOR GFR 0.47 MG/DL (0.55-1.30); GLOMERULAR FILTRATION RATE > 90.0 (>51); POTASSIUM SERUM 4.0 MMOL/L (3.5-5.1); SODIUM LEVEL 144 MMOL/L (136-145)
[2024-11-22 06:53] LABS: FREE T4 3.47 NG/DL (0.89-1.76)
[2024-11-22 07:54] VITALS: BP 140/66; TEMP 97.6; O2SAT 98
[2024-11-22] MEDS: predniSONE 20 MG TAB PO SCH (10:32)
[2024-11-22 16:11] VITALS: BP 126/59; TEMP 97.2; O2SAT 97
[2024-11-22 17:00] VITALS: BP 146/64; TEMP 96.8; O2SAT 97
[2024-11-22 20:16] VITALS: BP 124/59; TEMP 97.2; O2SAT 95
[2024-11-23 00:52] VITALS: BP 119/50; TEMP 97; O2SAT 96
[2024-11-23 04:29] VITALS: BP 121/52; TEMP 96.8; O2SAT 98
[2024-11-23 06:29] LABS: BASO # 0.0 10^3/uL (0.0-0.2); BASO % 0.1 % (0.0-1.0); EOS # 0.2 10^3/uL (0.0-0.5); EOS % 3.0 % (0.0-3.0); LYMPH # 3.7 10^3/uL (1.5-5.0); LYMPH % 48.0 % (24.0-44.0); MONO # 0.7 10^3/uL (0.0-0.8); MONO % 9.6 % (2.0-8.0); NEUTROPHILS # 3.0 10^3/uL (1.5-8.5); NEUTROPHILS % 39.0 % (36.0-66.0); PLATELET COUNT, AUTOMATED 247 10^3/uL (150-450)
[2024-11-23 06:55] LABS: ALT/SGPT 16 U/L (7.0-40); AST/SGOT 13 U/L (<34); CALCIUM LEVEL 8.9 MG/DL (8.5-10.1); CARBON DIOXIDE LEVEL 29 MMOL/L (20-31); CHLORIDE LEVEL 105 MMOL/L (98-107); CREATININE FOR GFR 0.51 MG/DL (0.55-1.30); GLOMERULAR FILTRATION RATE > 90.0 (>51); POTASSIUM SERUM 3.7 MMOL/L (3.5-5.1); SODIUM LEVEL 142 MMOL/L (136-145)
[2024-11-23 06:56] LABS: FREE T4 2.93 NG/DL (0.89-1.76)
[2024-11-23 08:00] VITALS: BP 130/59; TEMP 97.3; O2SAT 98
[2024-11-23 09:43] VITALS: BP 130/59
[2024-11-23] MEDS ORDERED: PRED20TA PO (10:28)
[2024-11-23] MEDS ORDERED: ATEN50TA2 PO (10:28)
[2024-11-23] MEDS ORDERED: METH-1387 PO (10:28)
[2024-11-23 12:00] VITALS: BP 149/60; TEMP 97; O2SAT 95
== END 2024-11-23 13:05 | disposition home or self-care (01) | DRG 424 ==
LOC: M ED 11:12 → M ED INP 15:12 → M PCU 17:20 → M MSPAV 11-22 16:55
PROVIDERS: ADMIT Internal Medicine; ATTEND Internal Medicine
DX: E05.00 Thyrotoxicosis with diffuse goiter without thyrotoxic crisis or storm (principal); B20 Human immunodeficiency virus [HIV] disease; Q61.3 Polycystic kidney, unspecified; D70.9 Neutropenia, unspecified; Q44.6 Cystic disease of liver; J45.909 Unspecified asthma, uncomplicated; I10 Essential (primary) hypertension; F39 Unspecified mood [affective] disorder; R53.1 Weakness; R11.2 Nausea with vomiting, unspecified; R19.7 Diarrhea, unspecified; G47.00 Insomnia, unspecified; Z79.899 Other long term (current) drug therapy; Z91.010 Allergy to peanuts; Z91.018 Allergy to other foods; Z91.038 Other insect allergy status; Z87.891 Personal history of nicotine dependence

== ENCOUNTER 2024-12-18 16:50 | Observation (INO) | payer MEDICAID, OTHER ==
[~2024-12-18] VITALS: Ht 180.3 cm; Wt 90.5 kg
[~2024-12-18 16:50] MED LIST changes: +PRED20TA PO
[2024-12-18 18:05] LABS: BASO # 0.0 10^3/uL (0.0-0.2); BASO % 0.4 % (0.0-1.0); EOS # 0.1 10^3/uL (0.0-0.5); EOS % 1.7 % (0.0-3.0); LYMPH # 2.6 10^3/uL (1.5-5.0); LYMPH % 55.1 % (24.0-44.0); MONO # 0.6 10^3/uL (0.0-0.8); MONO % 12.3 % (2.0-8.0); NEUTROPHILS # 1.4 10^3/uL (1.5-8.5); NEUTROPHILS % 30.5 % (36.0-66.0); PLATELET COUNT, AUTOMATED 329 10^3/uL (150-450)
[2024-12-18 18:23] LABS: ALT/SGPT 13 U/L (7.0-40); AST/SGOT 15 U/L (<34); C REACTIVE PROTEIN QUANTITATIV 0.88 MG/DL (<1.0); CALCIUM LEVEL 9.1 MG/DL (8.5-10.1); CARBON DIOXIDE LEVEL 28 MMOL/L (20-31); CHLORIDE LEVEL 102 MMOL/L (98-107); CREATININE FOR GFR 0.79 MG/DL (0.55-1.30); GLOMERULAR FILTRATION RATE 89.4 (>51); POTASSIUM SERUM 3.8 MMOL/L (3.5-5.1); SODIUM LEVEL 137 MMOL/L (136-145)
[2024-12-18 18:25] LABS: ERYTHROCYTE SEDIMENTATION RATE 100 mm/hr (0-30)
[2024-12-18 18:26] LABS: FREE T4 2.10 NG/DL (0.89-1.76)
[2024-12-18] MEDS ORDERED: METH-1387 PO (19:33)
[2024-12-18] MEDS ORDERED: HOME MED LIST COMPLETE! XX SCH (19:35)
[2024-12-18] MEDS: LR 1,000 ML IV ONE (22:40)
[2024-12-19] MEDS: LR 1,000 ML IV SCH (00:29)
[2024-12-19 01:33] VITALS: BP 140/56; TEMP 97; O2SAT 100
[2024-12-19 04:13] VITALS: BP 125/60; TEMP 97.1; O2SAT 97
[2024-12-19 07:09] LABS: PLATELET COUNT, AUTOMATED 262 10^3/uL (150-450)
[2024-12-19] MEDS ORDERED: ALBUTEROL 90 MCG/ACT 8 GM HFA INHALER INH PRN (07:10)
[2024-12-19 07:19] LABS: CALCIUM LEVEL 8.4 MG/DL (8.5-10.1); CARBON DIOXIDE LEVEL 29 MMOL/L (20-31); CHLORIDE LEVEL 105 MMOL/L (98-107); CREATININE FOR GFR 0.61 MG/DL (0.55-1.30); GLOMERULAR FILTRATION RATE > 90.0 (>51); MAGNESIUM LEVEL 1.5 MG/DL (1.8-2.4); POTASSIUM SERUM 3.5 MMOL/L (3.5-5.1); SODIUM LEVEL 141 MMOL/L (136-145)
[2024-12-19 08:00] VITALS: BP 124/58; TEMP 97.7; O2SAT 96
[2024-12-19] MEDS: SYMBICORT 160/4.5MCG INHALER 6GM INH SCH (08:35)
[2024-12-19] MEDS: ENOXAPARIN 40 MG/0.4 ML SYRINGE (J1650 PER 10MG) SC SCH (09:38)
[2024-12-19] MEDS: FLUTICASONE PROPIONATE 0.05% NASAL SPRAY 16 GM NARES SCH (09:38)
[2024-12-19] MEDS: LORATADINE 10 MG TAB PO SCH (09:39)
[2024-12-19] MEDS: BIKTARVY PO SCH (09:40)
[2024-12-19] MEDS: MAG SULF 1GM/100ML (MAG RUN) 1 GM in IV 1 EA IV SCH (09:40)
[2024-12-19 09:42] VITALS: BP 139/70
[2024-12-19 12:00] VITALS: BP 110/55; TEMP 97.9; O2SAT 92
[2024-12-19] MEDS ORDERED: ATEN25TA PO (12:36)
[2024-12-19] MEDS ORDERED: CHOL4PW PO (12:46)
== END 2024-12-19 14:18 | disposition home or self-care (01) ==
LOC: M ED 16:50 → M ED INP 16:51 → M MSPAV 12-19 01:28
PROVIDERS: ADMIT Student in an Organized Health Care Education/Training Program; ATTEND Internal Medicine
DX: E05.00 Thyrotoxicosis with diffuse goiter without thyrotoxic crisis or storm (principal); E86.0 Dehydration; R55 Syncope and collapse; R11.2 Nausea with vomiting, unspecified; R19.7 Diarrhea, unspecified; J45.909 Unspecified asthma, uncomplicated; Q61.3 Polycystic kidney, unspecified; Q44.6 Cystic disease of liver; Z91.81 History of falling; I10 Essential (primary) hypertension; G43.909 Migraine, unspecified, not intractable, without status migrainosus; F39 Unspecified mood [affective] disorder; B20 Human immunodeficiency virus [HIV] disease; Z87.891 Personal history of nicotine dependence; Z91.010 Allergy to peanuts; Z91.018 Allergy to other foods; Z79.899 Other long term (current) drug therapy; Z79.51 Long term (current) use of inhaled steroids
CPT/HCPCS: 36415; 80048; 80076; 83605; 83690; 83735; 84145; 84439; 84443; 84481; 85025; 85027; 85652; 86140; 87040; 93005; 96361; 96365; 96366; 96372; 99285; J1650; J3475